=== PATIENT | female | born 1975 | race Two or more races ===

== ENCOUNTER → 2016-05-03 | Outpatient (CLI) | payer OTHER ==
--- NOTE | 2016-05-04 09:23 | RAD ---
DATE: 05/03/2016 EXAM: DIGITAL SCREEN BILAT W/CAD HISTORY: Routine screening COMPARISON: 04/23/2015 This study was interpreted with the benefit of Computerized Aided Detection (CAD). FINDINGS: The breasts are heterogeneously dense. No new or enlarging breast densities are seen. No suspicious microcalcifications are evident. Benign-appearing lymph nodes are noted in the axillary regions. IMPRESSION: Stable mammograms without evidence of malignancy. BI-RADS CATEGORY: 2 BENIGN FINDING(S) RECOMMENDED FOLLOW-UP: 12M 12 MONTH FOLLOW-UP PQRS compliance statement: Patient information was entered into a reminder system with a target due date for the next mammogram. Mammography is a sensitive method for finding small breast cancers, but it does not detect them all and is not a substitute for careful clinical examination. A negative mammogram does not negate a clinically suspicious finding and should not result in delay in biopsying a clinically suspicious abnormality. "Our facility is accredited by the [employer] Mammography [employer]."
== END | disposition home or self-care (01) ==
LOC: MAMMO 14:12
PROVIDERS: ATTEND Obstetrics & Gynecology
DX: Z12.31 Encounter for screening mammogram for malignant neoplasm of breast (principal)
CPT/HCPCS: G0202; 77067

== ENCOUNTER → 2016-05-05 | Outpatient (CLI) | payer OTHER ==
[2016-05-05 12:22] LABS: BASO % 1 % (0-3); EOS % 1 % (0-3); HEMATOCRIT 41.9 % (36.0-47.0); LYMPH # 1.9 x10^3/uL (1.0-4.8); LYMPH % 26 % (24-48); MEAN CORPUSCULAR HEMOGLOBIN 27 pg (25-35); MEAN CORPUSCULAR HGB CONC 33 g/dL (31-37); MEAN CORPUSCULAR VOLUME 82 fL (79-100); MONO % 6 % (0-9); NEUT % 67 % (31-73); PLATELET COUNT 337 x10^3/uL (140-400); RED BLOOD COUNT 5.09 x10^6/uL (3.50-5.40); RED CELL DISTRIBUTION WIDTH 12.7 % (11.5-14.5); WHITE BLOOD COUNT 7.1 x10^3/uL (4.0-11.0)
[2016-05-05 12:30] LABS: CALCIUM 9.3 mg/dL (8.5-10.1); CREATININE 0.9 mg/dL (0.6-1.0); GFR 68.3; POTASSIUM 3.7 mmol/L (3.5-5.1)
== END | disposition home or self-care (01) ==
LOC: LAB 11:51
PROVIDERS: ATTEND Family Medicine
DX: M79.2 Neuralgia and neuritis, unspecified (principal); K59.00 Constipation, unspecified
CPT/HCPCS: 36415; 80048; 82607; 84443; 85027

== ENCOUNTER → 2017-05-05 | Outpatient (CLI) | payer OTHER | END | disposition home or self-care (01) | LOC: MAMMO 10:40 | DX: Z12.31 Encounter for screening mammogram for malignant neoplasm of breast (principal) | CPT/HCPCS: 77063; 77067 ==

== ENCOUNTER → 2017-12-01 | Day surgery (SDC) | payer OTHER ==
[~2017-12-01] MED LIST: FLUT9.9S NS; IV RINGERS,LACTATED 1000ML 1,000 ML IV SCH; L-NO1TBD6 PO; L.AC1CAP6 PO; LIDOCAINE 2% PF 2ML VIAL. ONE; LINA290C PO; LORA5SOL7 PO; MONT10TA9 PO; PARO30TA45 PO; PHEN37.53 PO; PROPOFOL 40 ML IV ONE
[2017-12-01 08:05] LABS: U PREG PATIENT NEGATIVE (NEG)
[2017-12-01 09:40] VITALS: BP 136/66
== END | disposition home or self-care (01) ==
LOC: ENDOS 07:28
PROVIDERS: ATTEND Internal Medicine Gastroenterology
DX: K64.0 First degree hemorrhoids (principal); Z83.71 Family history of colonic polyps; Z82.49 Family history of ischemic heart disease and other diseases of the circulatory system; Z83.3 Family history of diabetes mellitus; Z79.899 Other long term (current) drug therapy
CPT/HCPCS: 45378; 81025; J2001; J2704

== ENCOUNTER → 2017-12-08 | Outpatient (CLI) | payer OTHER ==
[2017-12-01 09:40] VITALS: BP 136/66
[~2017-12-08] MED LIST changes: -IV RINGERS,LACTATED 1000ML 1,000 ML IV SCH; -LIDOCAINE 2% PF 2ML VIAL. ONE; -PROPOFOL 40 ML IV ONE
--- NOTE | 2017-12-08 17:17 | RAD ---
Pelvic ultrasound History: Dysfunctional uterine bleeding Comparison: None. Technique: Transabdominal ultrasound was performed to evaluate the uterine fundus. Endovaginal imaging was performed to evaluate optimally the endometrial canal and lower uterine segment. TRANSABDOMINAL IMAGING Findings: The uterus measures 7.1 cm in length. The uterus appears heterogeneous, but no discrete masses are identified. Endometrium is not well seen. Ovaries are not well seen. ENDOVAGINAL IMAGING Findings: The uterus measures 8.1 cm in length and is unremarkable. The endometrium measures 2 mm. Small nabothian cyst is seen. Right ovary measures 1.9 x 1.9 x 2.1 cm and is unremarkable. The left ovary measures 2.2 x 1.2 x 2.4 cm and is unremarkable. No adnexal masses are identified. No significant free fluid is identified within the pelvis. Both ovaries demonstrate normal vascular flow upon Doppler interrogation and are without evidence of torsion. Impression: 1. Uterus demonstrates heterogeneous myometrium, but no discrete leiomyomata are seen. 2. Endometrial thickness is within normal limits at 2 mm. 3. Small nabothian cyst. Electronically signed by: Nathaniel Weeks MD (12/08/2017 5:13 PM) [place] [id number]
== END | disposition home or self-care (01) ==
LOC: US 10:30
PROVIDERS: ATTEND Obstetrics & Gynecology
DX: N85.8 Other specified noninflammatory disorders of uterus (principal); Z79.899 Other long term (current) drug therapy; Z82.49 Family history of ischemic heart disease and other diseases of the circulatory system; Z83.3 Family history of diabetes mellitus; Z83.71 Family history of colonic polyps
CPT/HCPCS: 76830; 76856

== ENCOUNTER → 2018-05-30 | Outpatient (CLI) | payer OTHER ==
[2017-12-01 09:40] VITALS: BP 136/66
[~2018-05-30] MED LIST changes: -LINA290C PO; +LINZESS290 MCG PO
--- NOTE | 2018-05-31 10:51 | RAD ---
DATE: 05/31/2018 EXAM: MAMMO COLE SCREENING BILATERAL HISTORY: Routine screening. COMPARISON: Previous mammogram from 2018 and 2017 This study was interpreted with the benefit of Computerized Aided Detection (CAD). FINDINGS: Breast Density: HETERO The breast parenchyma Is heterogeneously dense, which could reduce sensitivity of mammography. Breast parenchyma level C. The skin and nipples are within normal limits. No suspicious calcifications, spiculated mass or area of architectural distortion. Stable oval-shaped mass in the left breast 5:00 position dating back to 2017 and most likely benign given interval stability. IMPRESSION: No mammographic evidence of malignancy. Stable mammogram. BI-RADS CATEGORY: 2 BENIGN FINDING(S) RECOMMENDED FOLLOW-UP: 12M 12 MONTH FOLLOW-UP PQRS compliance statement: Patient information was entered into a reminder system with a target due date for the next mammogram. Mammography is a sensitive method for finding small breast cancers, but it does not detect them all and is not a substitute for careful clinical examination. A negative mammogram does not negate a clinically suspicious finding and should not result in delay in biopsying a clinically suspicious abnormality. "Our facility is accredited by the [employer] Mammography [employer]."
== END | disposition home or self-care (01) ==
LOC: MAMMO 14:14
PROVIDERS: ATTEND Obstetrics & Gynecology
DX: Z12.31 Encounter for screening mammogram for malignant neoplasm of breast (principal); N63.23 Unspecified lump in the left breast, lower outer quadrant
CPT/HCPCS: 77063; 77067

== ENCOUNTER → 2019-08-27 | Outpatient (CLI) | payer OTHER ==
[2017-12-01 09:40] VITALS: BP 136/66
[~2019-08-27] MED LIST changes: +MONT10TA49 PO; -MONT10TA9 PO
== END | disposition home or self-care (01) ==
LOC: LAB 10:40
PROVIDERS: ATTEND Internal Medicine Pulmonary Disease
DX: Z11.59 Encounter for screening for other viral diseases (principal)
CPT/HCPCS: U0003-CS

== ENCOUNTER → 2019-12-18 | Outpatient (CLI) | payer OTHER ==
[2017-12-01 09:40] VITALS: BP 136/66
--- NOTE | 2019-12-18 17:54 | RAD ---
EXAMINATION: Bilateral screening mammogram, 12/18/2019 3:00 PM CLINICAL INDICATION: 44-year-old woman presenting for screening mammogram. COMPARISON: 05/30/2018 TECHNIQUE: Digital bilateral full-field CC and MLO views, and CC and MLO tomosynthesis views of the breasts were obtained. CAD was utilized. FINDINGS: The breasts contain scattered areas of fibroglandular density. There is a 9 mm ovoid mass at 3:00 in the left breast, 2 cm posterior to the nipple. No suspicious calcification, or architectural distortion. IMPRESSION: 1. 9 mm left breast mass. Recommend spot compression CC and MLO views and ultrasound to further evaluate. 2. BI-RADS 0-incomplete. Need additional imaging evaluation. 3. A results and recommendation letter will be sent to the patient. Electronically signed by: Livier Toscano MD (12/18/2019 5:51 PM) [id number]
== END ==
LOC: MAMMO 13:12
PROVIDERS: ATTEND Family Medicine
DX: Z12.31 Encounter for screening mammogram for malignant neoplasm of breast (principal); N64.89 Other specified disorders of breast
CPT/HCPCS: 77063; 77067

== ENCOUNTER → 2020-01-02 | Outpatient (CLI) | payer OTHER ==
[2017-12-01 09:40] VITALS: BP 136/66
--- NOTE | 2020-01-02 12:43 | RAD ---
DATE: 01/02/2020 EXAM: Left breast ultrasound HISTORY: Recall for left breast mass COMPARISON: Screening mammogram 12/18/2019 TECHNIQUE: Grayscale and color Doppler ultrasound images of the left breast in the area of concern at 3:00. FINDINGS: There is an ovoid, hypoechoic mass at 3:00, 1 cm from nipple. This measures 9 x 8 x 4 mm and correlates with the mammographic abnormality. The mass has circumscribed margins, is parallel in orientation, and has no posterior acoustic shadowing. Apparent shadowing on several images is due to some adjacent ducts. There is no internal blood flow. No abnormal lymph nodes in the left axilla. IMPRESSION: Probably benign 9 mm mass at 3:00, 1 cm from the nipple in the left breast. 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 Recommend 6 month follow-up ultrasound to ensure stability. BI-RADS CATEGORY: 3 PROBABLY BENIGN FINDING(S)-SHORT INTERVAL FOLLOW-UP SUGGESTED RECOMMENDED FOLLOW-UP: Six-month follow-up left breast ultrasound. Results, recommendations, and alternative of biopsy were discussed with the patient. She was in agreement with a 6 month follow-up ultrasound. SY
--- NOTE | 2020-01-02 12:44 | RAD ---
DATE: 101905/10/2019 EXAM: DIGITAL DIAGNOSTIC LT HISTORY: Recall from screening mammogram for left breast mass COMPARISON: Screening mammogram 12/18/2019 Breast Density: SCATTERED The breast parenchyma shows scattered fibroglandular densities. Breast parenchyma level B. FINDINGS: The 9 mm ovoid mass at 3:00, 2 cm from nipple persists on spot compression views. The mass has circumscribed margins. IMPRESSION: Persistent mass in the left breast. Recommend further evaluation with left breast ultrasound. BI-RADS CATEGORY: 0 INCOMPLETE: NEEDS ADDITIONAL IMAGING EVALUATION AND/OR PRIOR MAMMOGRAMS FOR COMPARISON. RECOMMENDED FOLLOW-UP: Left breast ultrasound, to be performed immediately after the diagnostic mammogram. PQRS compliance statement: Mammography is a sensitive method for finding small breast cancers, but it does not detect them all and is not a substitute for careful clinical examination. A negative mammogram does not negate a clinically suspicious finding and should not result in delay in biopsying a clinically suspicious abnormality. "Our facility is accredited by the [employer] Mammography [employer]." SY
== END ==
LOC: MAMMO 10:54
PROVIDERS: ATTEND Family Medicine
DX: R92.8 Other abnormal and inconclusive findings on diagnostic imaging of breast (principal); N63.21 Unspecified lump in the left breast, upper outer quadrant
CPT/HCPCS: 76641; 77065

== ENCOUNTER → 2020-06-26 | Outpatient (CLI) | payer OTHER ==
[2017-12-01 09:40] VITALS: BP 136/66
--- NOTE | 2020-06-26 12:55 | RAD ---
DATE: 06/26/2020 EXAM: BREAST LEFT HISTORY: Six-month follow-up of left breast mass COMPARISON: Left breast ultrasound 01/02/2020 FINDINGS: There is an ovoid circumscribed hypoechoic mass in the left breast at 3:00, 1 cm from the nipple. This measures 9 x 9 x 4 mm, previously 9 x 8 x 4 mm. No mass or lymphadenopathy. IMPRESSION: Unchanged probably benign mass in the left breast at 3:00 1 cm from the nipple, likely a fibroadenoma. Recommend 6 month follow-up ultrasound to ensure stability, which time the patient will be due for her annual mammogram. BI-RADS CATEGORY: 3 PROBABLY BENIGN FINDING(S)-SHORT INTERVAL FOLLOW-UP SUGGESTED RECOMMENDED FOLLOW-UP: 6M 6 MONTH FOLLOW-UP PQRS compliance statement: Patient information was entered into a reminder system with a target due date for the next mammogram. Mammography is a sensitive method for finding small breast cancers, but it does not detect them all and is not a substitute for careful clinical examination. A negative mammogram does not negate a clinically suspicious finding and should not result in delay in biopsying a clinically suspicious abnormality. "Our facility is accredited by the [employer] Mammography [employer]."
== END ==
LOC: US 12:27
PROVIDERS: ATTEND Family Medicine
DX: N63.20 Unspecified lump in the left breast, unspecified quadrant (principal)
CPT/HCPCS: 76641

== ENCOUNTER → 2020-09-02 | Outpatient (CLI) | payer OTHER ==
[2017-12-01 09:40] VITALS: BP 136/66
[2020-09-02 10:16] LABS: BASO % 0 % (0-3); EOS # 0.1 x10^3/uL (0.0-0.7); EOS % 2 % (0-3); HEMATOCRIT 42.3 % (36.0-47.0); HEMOGLOBIN 14.3 g/dL (12.0-15.5); LYMPH # 1.7 x10^3/uL (1.0-4.8); LYMPH % 31 % (24-48); MEAN CORPUSCULAR HEMOGLOBIN 29 pg (25-35); MEAN CORPUSCULAR HGB CONC 34 g/dL (31-37); MEAN CORPUSCULAR VOLUME 85 fL (79-100); MONO # 0.4 x10^3/uL (0.0-1.1); MONO % 8 % (0-9); NEUT # 3.3 x10^3/uL (1.8-7.7); NEUT % 60 % (31-73); PLATELET COUNT 316 x10^3/uL (140-400); RED BLOOD COUNT 4.98 x10^6/uL (3.50-5.40); RED CELL DISTRIBUTION WIDTH 13.1 % (11.5-14.5); WHITE BLOOD COUNT 5.6 x10^3/uL (4.0-11.0)
[2020-09-02 10:32] LABS: ALBUMIN/GLOBULIN RATIO 1.1 (1.0-1.7); CALCIUM 8.9 mg/dL (8.5-10.1); CREATININE 0.9 mg/dL (0.6-1.0); GFR 67.1; POTASSIUM 3.8 mmol/L (3.5-5.1); TOTAL BILIRUBIN 0.7 mg/dL (0.2-1.0); TOTAL PROTEIN 7.5 g/dL (6.4-8.2)
[2020-09-02 10:42] LABS: FREE T4 1.01 ng/dL (0.76-1.46); THYROID STIM HORMONE (TSH) 1.402 uIU/mL (0.358-3.74)
== END ==
LOC: LAB 09:47
PROVIDERS: ATTEND Family Medicine
DX: R53.83 Other fatigue (principal)
CPT/HCPCS: 36415; 80053; 82306; 84439; 84443; 85025

== ENCOUNTER → 2020-12-11 | Outpatient (CLI) | payer OTHER ==
[2017-12-01 09:40] VITALS: BP 136/66
--- NOTE | 2020-12-11 16:00 | RAD ---
DATE: 12/11/2020 EXAM: MG DIGITAL BILAT DIAGNOSTIC MAMMO WITH COLE, US BREAST LT HISTORY: Six-month follow-up of left breast mass. Due for annual bilateral mammogram. COMPARISON: 06/26/2020, 01/02/2020, 12/18/2019, 01/09/2019, 05/05/2017, 05/03/2016 This study was interpreted with the benefit of Computerized Aided Detection (CAD). Breast Density: SCATTERED The breast parenchyma shows scattered fibroglandular densities. Breast pare nchyma level B. FINDINGS: The 8 mm circumscribed mass in the upper outer anterior left breast is unchanged. A small a symmetry in the outer right breast resolves with spot compression. There is no new mass, suspicious c alcifications, or architectural distortion. Ultrasound of the left breast at 3:00 1 cm from the nipple demonstrates the ovoid hypoechoic mass wit h circumscribed margins, parallel in orientation. This measures 9 x 8 x 4 mm and is unchanged from pr ior ultrasounds. IMPRESSION: Unchanged probably benign 9 mm mass at 3:00 in the retroareolar left breast. BI-RADS CATEGORY: 3 PROBABLY BENIGN FINDING(S)-SHORT INTERVAL FOLLOW-UP SUGGESTED RECOMMENDED FOLLOW-UP: Six-month follow-up ultrasound of the left breast. PQRS compliance statement: Patient information was entered into a reminder system with a target due d ate for the next mammogram. Mammography is a sensitive method for finding small breast cancers, but it does not detect them all a nd is not a substitute for careful clinical examination. A negative mammogram does not negate a clin ically suspicious finding and should not result in delay in biopsying a clinically suspicious abnorma lity. "Our facility is accredited by the [employer] Mammography [employer]." Electronically signed by: Livier Toscano MD (12/11/2020 3:57 PM) [id number]
== END ==
LOC: US 12:27
PROVIDERS: ATTEND Family Medicine
DX: N63.23 Unspecified lump in the left breast, lower outer quadrant (principal)
CPT/HCPCS: 76641; 77066; G0279; 77062

== ENCOUNTER → 2021-02-22 | Outpatient (CLI) | payer OTHER ==
[2017-12-01 09:40] VITALS: BP 136/66
[2021-02-22 11:50] LABS: INFLUENZA A PATIENT NEGATIVE (NEGATIVE); INFLUENZA B PATIENT NEGATIVE (NEGATIVE)
== END ==
LOC: LAB 11:01
PROVIDERS: ATTEND Family Medicine
DX: R05.9 Cough, unspecified (principal)
CPT/HCPCS: 87804

== ENCOUNTER → 2021-07-14 | Outpatient (CLI) | payer OTHER ==
[2017-12-01 09:40] VITALS: BP 136/66
--- NOTE | 2021-07-14 16:41 | RAD ---
EXAM: US BREAST LT 07/14/2021 10:59 AM CLINICAL INDICATION: Six-month follow-up of probably benign left breast mass. COMPARISON: 12/11/2020, 06/26/2020, and 01/02/2020 TECHNIQUE: Grayscale and color Doppler ultrasound of the left breast at 3:00 in the area of concern. Images of the left axilla were also obtained. FINDINGS: At 3:00, 1 cm from the nipple, there is an ovoid circumscribed hypoechoic mass measuring 9 x 8 x 4 mm. This has no posterior acoustic shadowing or internal vascularity. This is unchanged in s ize and appearance. No abnormal lymph nodes in the left axilla. IMPRESSION: Unchanged probably benign left breast mass at 3:00 1 cm from the nipple. Recommend follo w-up left breast ultrasound in 6 months when the patient is due for her annual bilateral mammogram, t o complete 2 years of surveillance. BI-RADS CATEGORY: 3 PROBABLY BENIGN FINDING(S)-SHORT INTERVAL FOLLOW-UP SUGGESTED RECOMMENDED FOLLOW-UP: 6M 6 MONTH FOLLOW-UP Electronically signed by: Livier Toscano MD (07/14/2021 4:39 PM) [id number]
== END ==
LOC: US 11:04
PROVIDERS: ATTEND Family Medicine
DX: N63.23 Unspecified lump in the left breast, lower outer quadrant (principal)
CPT/HCPCS: 76641